=== PATIENT | female | born 2000 | race Caucasian/White ===

== ENCOUNTER 2019-04-22 19:39 | Observation (INO) ==
[2019-04-22] MEDS ORDERED: SODIUM CHLORIDE 0.9% 1000ML 1,000 ML IV SCH (20:00)
[2019-04-22 20:09] LABS: Basophils # (auto) 0.02 K/uL (0-0.2); Basophils % (auto) 0.3 %; Eosinophils # (auto) 0.41 K/uL (0-0.5); Eosinophils % (auto) 5.3 %; Hematocrit (blood only) 38.6 % (37-47); Hemoglobin 12.9 g/dL (12.0-16.0); Immature Granulocytes # (auto) 0.03 K/uL (0.00-0.02); Immature Granulocytes % (auto) 0.4 %; Lymphocytes % (auto) 29.8 %; Mean Corpuscular Hemoglobin 28.7 pg (25-34); Mean Corpuscular Hgb Conc 33.4 g/dL (32-36); Mean Corpuscular Volume 85.8 fL (80-100); Monocytes # (auto) 0.52 K/uL (0.11-0.59); Monocytes % (auto) 6.7 %; Neutrophils # (auto) 4.45 K/uL (1.4-6.5); Neutrophils % (auto) 57.5 %; Platelet Count 335 K/uL (130-400); RDW Coefficient of Variation 13.3 % (11.5-14.5); RDW Standard Deviation 42.1 fL (36.4-46.3); White Blood Count 7.73 K/uL (4.8-10.8)
[2019-04-22 20:19] LABS: BUN Creatinine Ratio 7.4 (10-20); Calcium 9.5 mg/dl (8.5-10.1); Creatinine Clr Calc Pharmacy 87.3 ml/min; Est GFR (African American) 93.9; Potassium 4.1 mmol/L (3.5-5.1)
[2019-04-22 20:24] LABS: Bilirubin,Total 0.2 mg/dl (0.2-1); Globulin 4.2 gm/dl (2.5-4.0); Total Protein 8.2 gm/dl (6.4-8.2)
--- NOTE | 2019-04-22 21:14 | XRay Report ---
XR chest 1V portable CLINICAL HISTORY: 19 years-old Female presenting with seizure. TECHNIQUE: Portable upright AP view of the chest was obtained. COMPARISON: None. FINDINGS: Cardiomediastinal silhouette normal. No focal opacity. No large effusion or pneumothorax. Osseous str uctures normal. Upper abdomen normal. IMPRESSION: 1. No acute cardiopulmonary disease. ACT 112: Negative or not required by law. Electronically signed by: Henry Holder M.D. 04/22/2019 9:12 PM
[2019-04-22] MEDS ORDERED: LORazepam 1 MG/2 ML VIAL IV STA (21:48)
--- NOTE | 2019-04-22 22:10 | History & Physical Report ---
Date of Service April 22, 2019 Assessment & Plan (1) Breakthrough seizure: OBS tele seizure precautions PRN IV Ativan Consult neurology Will defer order for EEG to neurology as seizure was witnessed by ED staff. D5 1/2 NSS at 80ml/hr. (2) Seizure disorder: Continue Keppra at 2000mg BID DVT prophylaxis = SCDs and NATASHA villeda. History of Present Illness 19 year old female presented to the ED with tonic clonic seizure just prior to arrival. Patient's roommate reported that seizure lasted 26 seconds. Body shaking was noted and patient was confused upon awakening. No loss of bowel or bladder control. She is taking Keppra 2gm BID. She has not missed a dose. No chest pain, SOB, cough, headache, N/V/D, or F/C. She was planned to be discharged from the ED and had tonic clonic seizure prior to being discharged. Therefore, she is admitted to PCU. As I saw the patient she was post-ictal and had been given lorazepam. Her parents were present and I update them and answered questions. . Primary Care Provider: [facility] Allergies Allergy/AdvReac Type Severity Reaction Status Date / Time No Known Allergies Allergy Verified 04/22/19 21:12 Home Medications Home Medications Medication Instructions Recorded Confirmed Type levetiracetam 2,000 mg PO BID 04/22/19 04/22/19 History Past Med/Surg History Medical History Seizure disorder Surgical History No pertinent past surgical history Family History Other Family history non-contributory Social History Preferred Language: Peruvian Communication Ability: Effective [employer] Sales[employer] Required: No Beliefs That Will Affect Care: None Current Living Situation: Other Current Living Situation Comment: roomates/parents when out of school Feels Safe at Home: Yes Smoking Status: Never smoker Hx Alcohol Use: No Hx Substance Use: No Review of Systems Review of Systems: All systems reviewed & are unremarkable except as noted in HPI & below Physical Exam Physical Exam: General- adult female, currently sleeping. Head- atraumatic Eyes- PERRL, EOMI, anicteric ENT- oropharynx clear Neck- supple, no JVD, no adenopathy, no thyromegaly. Lungs- CTA b/l no R/R/W. Heart- regular rhythm; no murmur, no gallop, no rub appreciated Abdomen- normal bowel sounds, soft, nontender, no masses or hepatosplenomegaly Extremities- no pretibial edema, no calf tenderness; peripheral pulses intact Neuro- Sleeping, she is post-ictal and had been given lorazepam. Skin- warm & dry Results & Data Vital Signs (Past 12 Hours) Vital Signs Temp Pulse Resp BP Pulse Ox 04/22/19 21:46 106 H 19 129/79 95 04/22/19 21:30 82 15 122/75 97 04/22/19 21:00 81 18 109/64 04/22/19 20:30 76 22 105/61 04/22/19 19:46 36.9 C 99 H 14 115/65 97 Laboratory Results Laboratory Results WBC 7.73 K/uL (4.8-10.8) 04/22/19 19:30 RBC 4.50 M/uL (4.2-5.4) 04/22/19 19:30 Hgb 12.9 g/dL (12.0-16.0) 04/22/19 19:30 Hct 38.6 % (37-47) 04/22/19 19:30 MCV 85.8 fL (80-100) 04/22/19 19:30 MCH 28.7 pg (25-34) 04/22/19 19:30 MCHC 33.4 g/dL (32-36) 04/22/19 19:30 RDW Std Deviation 42.1 fL (36.4-46.3) 04/22/19 19:30 RDW Coeff of Kermit 13.3 % (11.5-14.5) 04/22/19 19:30 Plt Count 335 K/uL (130-400) 04/22/19 19:30 MPV 10.0 fL (7.4-10.4) 04/22/19 19:30 Immature Gran % (Auto) 0.4 % 04/22/19 19: Neut % (Auto) 57.5 % 04/22/19 19:30 Lymph % (Auto) 29.8 % 02/11/20 19:30 [place] % (Auto) 6.7 % 04/22/19 19:30 Eos % (Auto) 5.3 % 04/22/19 19:30 Baso % (Auto) 0.3 % 04/22/19 19:30 Immature Gran # (Auto) 0.03 K/uL (0.00-0.02) H 04/22/19 19:30 Neut # (Auto) 4.45 K/uL (1.4-6.5) 04/22/19 19:30 Lymph # (Auto) 2.30 K/uL (1.2-3.4) 04/22/19 19:30 [place] # (Auto) 0.52 K/uL (0.11-0.59) 04/22/19 19: Eos # (Auto) 0.41 K/uL (0-0.5) 04/22/19 19:30 Baso # (Auto) 0.02 K/uL (0-0.2) 04/22/19 19:30 Sodium 140 mmol/L (136-145) 04/22/19 19:30 Potassium 4.1 mmol/L (3.5-5.1) 04/22/19 19:30 Chloride 108 mmol/L (98-107) H 04/22/19 19:30 Carbon Dioxide 20 mmol/L (21-32) L 04/22/19 19:30 Anion Gap 12.0 (3-11) H 04/22/19 19:30 BUN 7 mg/dl (7-18) 04/22/19: Creatinine 1.00 mg/dl (0.6-1.2) 04/22/19 19:30 Est Cr Clr Drug Dosing 87.3 ml/min 04/22/19 19:30 Est GFR ( Amer) 93.9 04/22/19 19:30 Est GFR (Non-Af Amer) 81.0 04/22/19 19: BUN/Creatinine Ratio 7.4 (10-20) L 04/22/19 19:30 Glucose 105 mg/dl (70-99) H 04/22/19 19:30 Calcium 9.5 mg/dl (8.5-10.1) 04/22/19 19: Total Bilirubin 0.2 mg/dl (0.2-1) 02/11/20 19:30 AST 10 U/L (15-37) L 04/22/19 19:30 ALT 16 U/L (12-78) 04/22/19 19:30 Alkaline Phosphatase 64 U/L (45-117) 04/22/19 19:30 Total Protein 8.2 gm/dl (6.4-8.2) 04/22/19 19:30 Albumin 4.0 gm/dl (3.4-5.0) 04/22/19 19:30 Globulin 4.2 gm/dl (2.5-4.0) H 04/22/19 19:30 Albumin/Globulin Ratio 1.0 (0.9-2) 04/22/19 19:30 POC Ur Test NEG (NEG) 04/22/19 21:15 Diagnostic Findings [place], [place] [phone] XRay Report Patient: NITZA TRACEY Date: 04/22/19 MR#: [id number] [facility] Acct ID:[id number]: Date: 2000[facility] Zip: [place] [address] Age: 19Location: ED Sex: F Room/Bed: Att Phy:Diagnosis: SEIZURE [facility]: [facility] Fam Phy:Interpreting Phy: Henry Holder MD Admit Phy: Ordering Phy: Moshe Rick, cc: ~ XR chest 1V portable CLINICAL HISTORY: 19 years-old Female presenting with seizure. TECHNIQUE: Portable upright AP view of the chest was obtained. COMPARISON: None. FINDINGS: Cardiomediastinal silhouette normal. No focal opacity. No large effusion or pneumothorax. Osseous structures normal. Upper abdomen normal. IMPRESSION: 1. No acute cardiopulmonary disease. ACT 112: Negative or not required by law. Electronically signed by: Henry Holder M.D. 04/22/2019 9:12 PM Dictated: 04/22/192111 Transcribed: 04/22/192111 Code Status & VTE Plan VTE Prophylaxis Plan VTE Prophylaxis will be ordered: Yes PG Care Time/CCT Total # of Minutes Spent Total Time Spent: 55 Total Time Spent with Patient: Total time spent is greater than 50% in coordination of care (as documented) at patient's floor/unit and/or counseling patient: Coding Level of Care Code 73348 OBS Care - Level 3 Diagnoses Breakthrough seizure G40.919 Seizure disorder G40.909
--- NOTE | 2019-04-22 23:29 | Emergency Department Note ---
Entered by Blanche Merida acting as a scribe for Moshe Rick DO History of Present Illness General Chief complaint: Seizure Stated complaint: SEIZURE Source: patient, EMS and friends (roommate) History of Present Illness Onset (ago): minute(s) (prior to arrival) Location: head (general) Pain Consistency: + other (episode) Quality: + other (seizure) Associated symptoms: + denies other symptoms (head injury) and + other (fall); no chest pain, no nausea/vomiting and no shortness of breath The patient is a 19 year old female who presents to the Emergency Room with complaints of an episode of a tonic clonic seizure that occurred prior to arrival. The patient's roommate states the seizure last for 26 seconds. She reports whole body shaking and notes the patient was confused when she woke up. The patient's roommate states the patient was standing and fell onto her left shoulder, but did not hit her head. She denies loss of bowel or bladder. EMS reports the patient has a history of epilepsy. They note the patient had a blood sugar of 102. The patient reports a history of seizures for the past 7 years. She notes approximately one seizure a year, with the most recent over a year ago. The patient reports taking Keppra 2g twice a day. She denies missing any doses. She denies shortness of breath, chest pain, nausea, and vomiting. She notes her last normal menstrual period recently just ended. Home Medications Home Medications Medication Instructions Recorded Confirmed Type levetiracetam 2,000 mg PO BID 04/22/19 04/22/19 History Allergies Allergy/AdvReac Type Severity Reaction Status Date / Time No Known Allergies Allergy Verified 04/22/19 21:12 Past Med/Surg History Medical History Seizure disorder Surgical History No pertinent past surgical history Family History Other Family history non-contributory Social History Preferred Language: Cameroonian Feels Safe at Home: Yes Smoking Status: Never smoker Review of Systems See HPI for pertinent positives & negatives. and A total of 10 systems reviewed and were otherwise negative Physical Exam Vital Signs Vital Signs - 24 hr 04/22/19 19:46 04/22/19 20:30 04/22/19 21:00 Temperature 36.9 C Temperature Source Oral Pulse Rate 99 H 76 81 Pulse Rate from SpO2 Sensor Respiratory Rate 14 22 18 Respiratory Effort / Characteristics Non-Labored Spontaneous Respiratory Depth Normal Respiratory Pattern Regular Blood Pressure 115/65 105/61 109/64 Blood Pressure Mean 81 68 71 Pulse Oximetry 97 Oxygen Delivery Method Room Air Room Air Sepsis Recent Fever Within 48 Hours No Sepsis New/Unexplained Change in Mental Status No Sepsis Action Taken by Nursing No Action Required 04/22/19 21:30 04/22/19 21:46 04/22/19 22:00 Temperature Temperature Source Pulse Rate 82 106 H 107 H Pulse Rate from SpO2 Sensor 83 107 H Respiratory Rate 15 19 20 Respiratory Effort / Characteristics Respiratory Depth Respiratory Pattern Blood Pressure 122/75 129/79 118/55 L Blood Pressure Mean 82 87 77 Pulse Oximetry 97 95 95 Oxygen Delivery Method Room Air Sepsis Recent Fever Within 48 Hours Sepsis New/Unexplained Change in Mental Status Sepsis Action Taken by Nursing GENERAL: sitting up in bed, disheveled, tearful, no acute distress HEAD: nc/at EYE EXAM: normal conjunctiva, PERRL and EOM's grossly intact OROPHARYNX: bite farias on bilateral tongue; no exudate, no erythema, lips, and buccal mucosa normal and mucous membranes are moist NECK: supple, no nuchal rigidity, no adenopathy, non-tender LUNGS: Clear to auscultation. Normal chest wall mechanics HEART: no murmurs, S1 normal and S2 normal ABDOMEN: abdomen soft, non-tender, normo-active bowel sounds, no masses, no rebound or guarding. BACK: Back is symmetrical on inspection and there is no deformity, no midline tenderness, no CVA tenderness. SKIN: no rashes and no bruising UPPER EXTREMITIES: upper extremities are grossly normal. LOWER EXTREMITIES: No pitting edema. NEURO EXAM: Normal sensorium, cranial nerves II-XII intact, normal speech, no weakness of arms, no weakness of legs. No drift. Finger to nose intact. Gross sensation intact. Heal to nickerson intact. Rapid alternating movements of upper extremities intact. Course Course ED COURSE: Vital signs were reviewed and showed tachycardic. The patients medical record was reviewed The above diagnostic studies were performed and reviewed. ED treatments and interventions as stated above. 1950: The patient was evaluated in room A12B. A complete history and physical examination was performed. 2029: Upon reevaluation, the patient has a mild headache. She is able to walk to the bathroom. 2121: I spoke with Dr. Luis Lama neurology who recommends no change to the patient's medication and follow-up in the seizure clinic. 2143: Upon reevaluation, the patient had another seizure. 2149: Upon reevaluation, the patient is groggy, and is able to open her eyes, say her name and move all extremities. I discussed my findings with the patient and she understands and agrees with the treatment plan. I reviewed the patient's case with Dr. Kim [facility] Hospitalist will evaluate the patient for further management. Based on the patients age, coexisting illnesses, exam and lab findings the d ecision to treat as an inpatient was made. The patient remained stable while under my care. The patient will be evaluated for further management. Administered Medications Discontinued Medications Sodium Chloride (Nss 1000ml) 1,000 mls @ 999 mls/hr IV .Q1H1M FOSTER Stop: 04/22/19 21:00 Last Infusion: 04/22/19 21:17 Dose: 0 mls/hr Documented by: [id number] Admin: 04/22/19 20:16 Dose: 999 mls/hr Documented by: [id number] Lorazepam (Ativan) 1 mg in 2 mls @ 2 mls/min IV NOW STA Stop: 04/22/19 21:49 Last Admin: 04/22/19 21:54 Dose: 2 mls/min Documented by: [id number] Medical Decision Making Differential Diagnosis Differential diagnosis includes etiologies such as infection, hypoglycemia, electrolyte abnormalities, cardiac sources, intracerebral event, trauma, toxicologic, neurologic, as well as others were entertained. Medical Records Attestation: I reviewed the patient's medical records. Home Medications Current Medication List: was personally reviewed by me Laboratory Data Attestation: I reviewed the patient's lab results. Result diagrams: 04/22/19 19:30 04/22/19 19:30 Lab Results 04/22/19 04/22/19 04/22/19 Range/Units 19:30 19:30 21:15 WBC 7.73 (4.8-10.8) K/uL RBC 4.50 (4.2-5.4) M/uL Hgb 12.9 (12.0-16.0) g/dL Hct 38.6 (37-47) % MCV 85.8 (80-100) fL MCH 28.7 (25-34) pg MCHC 33.4 (32-36) g/dL RDW Std Deviation 42.1 (36.4-46.3) fL RDW Coeff of Kermit 13.3 (11.5-14.5) % Plt Count 335 (130-400) K/uL MPV 10.0 (7.4-10.4) fL Immature Gran % (Auto) 0.4 % Neut % (Auto) 57.5 % Lymph % (Auto) 29.8 % [place] % (Auto) 6.7 % Eos % (Auto) 5.3 % Baso % (Auto) 0.3 % Immature Gran # (Auto) 0.03 H (0.00-0.02) K/uL Neut # (Auto) 4.45 (1.4-6.5) K/uL Lymph # (Auto) 2.30 (1.2-3.4) K/uL Mineral # (Auto) 0.52 (0.11-0.59) K/uL Eos # (Auto) 0.41 (0-0.5) K/uL Baso # (Auto) 0.02 (0-0.2) K/uL Sodium 140 (136-145) mmol/L Potassium 4.1 (3.5-5.1) mmol/L Chloride 108 H (98-107) mmol/L Carbon Dioxide 20 L (21-32) mmol/L Anion Gap 12.0 H (3-11) BUN 7 (7-18) mg/dl Creatinine 1.00 (0.6-1.2) mg/dl Est Cr Clr Drug Dosing 87.3 ml/min Est GFR ( Amer) 93.9 Est GFR (Non-Af Amer) 81.0 BUN/Creatinine Ratio 7.4 L (10-20) Glucose 105 H (70-99) mg/dl Calcium 9.5 (8.5-10.1) mg/dl Total Bilirubin 0.2 (0.2-1) mg/dl AST 10 L (15-37) U/L ALT 16 (12-78) U/L Alkaline Phosphatase 64 (45-117) U/L Total Protein 8.2 (6.4-8.2) gm/dl Albumin 4.0 (3.4-5.0) gm/dl Globulin 4.2 H (2.5-4.0) gm/dl Albumin/Globulin Ratio 1.0 (0.9-2) POC Ur Test NEG (NEG) Imaging Data Radiologist's Impression: Radiology results as stated below per my review and the radiologist's interpretation: XR chest 1V portable CLINICAL HISTORY: 19 years-old Female presenting with seizure. TECHNIQUE: Portable upright AP view of the chest was obtained. COMPARISON: None. FINDINGS: Cardiomediastinal silhouette normal. No focal opacity. No large effusion or pneumothorax. Osseous structures normal. Upper abdomen normal. IMPRESSION: 1. No acute cardiopulmonary disease. ACT 112: Negative or not required by law. Electronically signed by: Henry Holder M.D. 04/22/2019 9:12 PM ECG Data Attestation: I personally reviewed and interpreted this ECG as follows: Indication: + other (seizure) Rate (beats per minute): 82 Rhythm: + sinus rhythm ECG Intervals/blocks: + Normal QT-c ECG [place]: + Normal ECG Findings: no PVCs Blood Pressure Blood Pressure Findings: Low blood pressure Blood Pressure Disposition: further management by hospitalist CHARISSE Narrative Patient is a 19-year-old female who presents the ER with a past medical history of a seizure disorder since she was a teenager. She gets about 1 a year. She is on 2 g of Keppra twice a day. She initially declines all other symptoms and notes that she had a 35-second seizure which was witnessed by her roommate. She is currently back to normal. Neurologic intact. She does have a previous CTs and MRIs per patient. IV was established blood work was obtained and shows no significant leukocytosis or anemia. BMP with a slightly low CO2. Do favor consistent with a seizure. Bilirubin LFTs was unremarkable. negative. Ordered a Keppra level. Chest x-ray was unremarkable as well as EKG. Just prior to discharge patient had a second seizure. I had already talked with Daina who was going to follow her up as an outpatient. Mom was present at bedside. She was given a dose of Ativan. Her mentation has gradually improved. Mom notes that she was recently diagnosed with the influenza I do be favor that this is the likely inciting factor which is lowered her seizure threshold. Discussed with our neurologist and they recommend no new changing of medications. Discussed with the hospitalist for observation. Impression & Plan Epileptic seizure, Breakthrough seizure, High serum chloride Discharge Plan Visit Data Chief Complaint: Seizure Stated Complaint: SEIZURE ED Provider: Moshe Rick Discharge Problem: Epileptic seizure, Breakthrough seizure, High serum chloride Patient Disposition: Being Evaluated by Hospitalist Discharge Instructions Interventions: ED Discharge Assessment Last Done: 04/22/19 22:59 Discharge Problem: Epileptic seizure Qualifiers: Epilepsy type: unspecified Intractability: not intractable Status epilepticus: without status epilepticus Qualified Code(s): G40.909 - Epilepsy, unspecified, not intractable, without status epilepticus The scribe's documentation has been prepared under my direction and personally reviewed by me in its entirety. I confirm that the note above accurately refl ects all work, treatment, procedures, and medical decision making performed by me.
[2019-04-22] MEDS ORDERED: LORazepam 1 MG/2 ML VIAL IV PRN (23:37)
[2019-04-22] MEDS ORDERED: ACETAMINOPHEN 325 MG TAB PO PRN (23:37)
[2019-04-22] MEDS ORDERED: ONDANSETRON INJ 2 MG/ML 2 ML VIAL IV PRN (23:37)
[2019-04-22] MEDS ORDERED: ACETAMINOPHEN 325 MG TAB ONE (23:38)
[2019-04-23] MEDS: D5W AND 1/2NSS 1,000 ML IV SCH ×2 (00:26→13:38)
[2019-04-23 04:39] LABS: Hematocrit (blood only) 34.1 % (37-47); Hemoglobin 11.1 g/dL (12.0-16.0); Mean Corpuscular Hemoglobin 28.4 pg (25-34); Mean Corpuscular Hgb Conc 32.6 g/dL (32-36); Mean Corpuscular Volume 87.2 fL (80-100); Mean Platelet Volume 10.2 fL (7.4-10.4); Platelet Count 243 K/uL (130-400); RDW Coefficient of Variation 13.5 % (11.5-14.5); Red Blood Count 3.91 M/uL (4.2-5.4); White Blood Count 6.87 K/uL (4.8-10.8)
[2019-04-23 04:59] LABS: BUN Creatinine Ratio 9.8 (10-20); Calcium 8.4 mg/dl (8.5-10.1); Creatinine Clr Calc Pharmacy 117.9 ml/min; Est GFR (African American) 135.2; Est GFR (Non-African American) 116.6; Potassium 3.8 mmol/L (3.5-5.1)
[2019-04-23] MEDS ORDERED: levETIRAcetam 500 MG TAB PO SCH (09:00)
--- NOTE | 2019-04-23 10:02 | Neurology Consultation ---
Date of Consultation April 23, 2019 Assessment & Plan (1) Seizure disorder: (2) Post-ictal state: Patient has a history of epilepsy fairly well controlled on levetiracetam, currently at a fairly high dose of 2000 mg twice daily. A Keppra level is pending. She had 2 brief breakthrough seizures April 22 and currently is somewhat sleepy/lethargic from a postictal state and the use of Ativan yesterday. Currently she has no encephalopathy, meningeal signs, or focal neurologic fin dings. The etiology of the seizures is likely breakthrough because of multiple factors lowering seizure threshold such as being ill, fatigue, stressed from school issues, and even pseudoephedrine (which can lower seizure threshold). Recommendations: 1. Continue levetiracetam at 2000 mg twice daily as before. 2. In future, if she has any side effects to this medication or we are not convinced that it is adequately controlling her events, we could consider alternative such as lamotrigine. I will leave this to her regular neurologist from [facility]. 3. Levetiracetam level is pending. 4. I see no need for MRI, EEG, or other neurologic testing at this time, as it will not change our treatment plan. 5. Otherwise, I have no other recommendations to make and she will follow up with her [facility] neurologist. Overall, I spent a total of 100 minutes with this case including review of records, direct evaluation the patient at bedside, and discussion of the case with the patient at bedside, father at bedside, RN, and Dr. Case, including differential diagnosis and treatment options. History of Present Illness Reason for Consultation: Patient is a 19-year-old, who I was asked to see at the request of Dr. Fernandes, for neurologic consultation regarding seizures Requesting Physician: Dr. Fernandes Attending Physician: Deena Fernandes MD History of Present Illness Patient's father is present at bedside who adds to the history considerably. Patient herself was a little lethargic/sleepy but able to answer questions and cooperate. Apparently, she has had seizures since age 12. She has been followed by [facility] neurologists since. She was initiated on levetiracetam and has been on some dose of this since she was 12 although in the last year it was increased to her current dose of 2000 mg twice daily. Apparently her frequency of seizures on this medication is anywhere from every 6-18 months. The patient herself cannot recall any warning prior to her seizures, but the patient was evaluated in the EMU of [facility] in July of 2018 (and accompanied by her mother). In the unit she had seizure with a warning feeling nauseated and the need to alert people that something might be happening. She herself forgets this. According to her father this warning will last 15-20 seconds. The patient will go into a generalized tonic-clonic movement lasting typically 2-3 minutes. She will then be postictal with fatigue, nausea and sleepiness. She will recover by about 12 hours. Patient's most recent seizure prior to this hospitalization was in March of 2018 although she had an episode in the EMU at [place] in July of 2018. About 3 weeks ago she had upper respiratory tract infection type symptoms. One week ago she spiked a fever went to [facility] and a nasal swab was apparently positive for the flu. She was given 1 dose of Xofluza. Over the last 4 days she has taken 5 doses of pseudoephedrine and taken other tnhv-utk-rwnkyrz medications such as ibuprofen and Tylenol. She has been very tired and worn out from this illness as well as stressed from school and social issues. Around 1900 she was getting ready to go to a concert at [facility], and had a 26 second seizure, according to the roommate. She was very postictal afterwards but does remember some of the ambulance ride and being in the emergency room. She arrived to the ER at 1946 with a temperature 36 point 9, pulse 99, respiratory rate 14, blood pressure 115/65, and O2 saturation 97%. She was described as somewhat sleepy but she improved over time. She had no focal neurologic findings. CBC and Chem profile were unremarkable. Magnesium was unremarkable. test was negative. Chest x-ray was unremarkable. She was recovered nicely at and about to be discharged when she had a 2nd 30 second generalized tonic-clonic event witnessed by emergency room personnel. She was given 1 mg of Ativan IV. Patient had no seizures overnight and no dysrhythmia on cardiac monitoring. This morning she feels tired and sleepy but back to normal physically. She denies headache, pain, soreness in the limbs, or dizziness. Allergies Allergy/AdvReac Type Severity Reaction Status Date / Time No Known Allergies Allergy Verified 04/22/19 21:12 Home Medications Home Medications Medication Instructions Recorded Confirmed Type levetiracetam 2,000 mg PO BID 04/22/19 04/22/19 History Patient History Medical History (Updated 04/23/19 @ 09:56 by Brandon Del Rio III, MD) Seizure disorder Surgical History H/O wisdom tooth extraction No pertinent past surgical history Family History Mother No problems noted. Father No problems noted. 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 Feels Safe at Home: Yes Smoking Status: Never smoker Hx Alcohol Use: No Hx Substance Use: No Review of Systems Constitutional: + fatigue; no fever and no weakness Eyes: no diplopia, no eye pain and no worsening vision Ear, Nose, Mouth, Throat: no ear pain, no tinnitus, no hearing loss, no dizziness, no snoring, no hoarseness and no dysphagia Respiratory: no cough and no dyspnea Cardiovascular: no chest pain, no palpitations and no lightheadedness Gastrointestinal: no abdominal pain, no nausea and no vomiting Genitourinary: no dysuria, no urinary frequency and no urinary incontinence Musculoskeletal: no back pain, no neck pain, no radicular pain, no joint pain and no myalgia Integumentary: no rash and no lesions Neurologic: no gait abnormality, no localized weakness, no generalized weakness, no tingling, no numbness, no tremor(s), no abnormal movements, no headache(s), no abnormal speech, no confusion and no memory loss Psychiatric: no depression, no irritability, no anxiety, no difficulty concentrating, no confusion and no hallucinations Endocrine: + fatigue; no flushing Hematologic / Lymphatic: no easy bleeding and no easy bruising Allergy / Immunological: no urticaria and no problem reported Physical Exam Physical Exam: The patient is right-handed. The patient is awake, alert, and attentive, although somewhat sleepy. She is easily redirected and arousable. Speech is normal without any aphasia or dysarthria. She can name objects, repeat phrases, and has normal spontaneous speech. Mentation and thought processes are intact, with orientation to person, place and time, and normal fund of knowledge. Attention and concentration are normal. Mood and affect are normal and appropriate. General appearance and grooming are normal. Short and long-term memory are intact. The discs are sharp with positive venous pulsations bilaterally. There are no exudates, hemorrhages, or blood vessel changes seen. Pupils are 4 mm bilaterally and reactive to light. Extraocular eye muscles are intact without nystagmus. Visual acuity and visual miles seem normal grossly to confrontation. There are no deficits to sensation in the face in all 3 distributions of the fifth cranial nerve bilaterally. Corneal reflexes are positive bilaterally. Facial strength and symmetry was normal bilaterally. Hearing seems normal to whisper and finger rub bilaterally. Palate moves well without asymmetry. There is normal sternocleidomastoid and trapezius (shoulder shrug) strength bilaterally. Tongue is midline with good strength bilaterally. Neck has a full range of motion without discomfort. There are no cervical bruits bilaterally. There are no cranial or ocular bruits. Heart is without murmur. There is a regular rhythm and rate. Cervical, thoracic, and lumbar spine are nontender to palpation. Gait is narrow based, with good arm swing, turns, and stance. Balance is normal eyes open or closed. With outstretched arms there is no drift. There are no resting, postural, or action tremors. There is no ataxia with finger to nose testing. There is good facility in the hands. No other abnormal involuntary movements are noted. Motor strength is 5/5 diffusely in the arms bilaterally including deltoids, biceps, triceps, brachioradialis, wrist flexors and extensors, screwhead polisher, and intrinsic hand muscles. Motor strength is 5/5 diffusely in the legs bilaterally including hip flexors, quadriceps, hamstrings, gastrocnemius, tibialis anterior, tibialis posterior, and Peroneii muscles. Toe extensors are normal and there is good bulk in the extensor digitorum brevis muscles bilaterally. The limbs have good tone without rigidity or spasticity. There is no atrophy noted in the muscles. Muscle bulk is normal, there is no tenderness to palpation, no myotonia to percussion, and no fasciculations seen. Sensory examination is intact to touch and pin throughout all 4 limbs diffusely. Reflexes are 1/4 in the biceps, triceps, brachioradialis, quadriceps, and Achilles tendons bilaterally. There is no clonus bilaterally. Toes are downgoing with plantar stimulation bilaterally. Peripheral pulses are present and of normal quality distally in all 4 limbs. There is no peripheral edema noted in the limbs. Results & Data Vital Signs (Past 12 Hours) Vital Signs Temp Pulse Pulse Resp BP BP Pulse Ox 04/23/19 07:09 36.3 C L 66 16 92/55 L 98 04/23/19 04:00 36.7 C 76 16 93/48 L 96 04/22/19 23:46 36.7 C 98 H 18 104/69 99 04/22/19 22:30 101 H 24 99/50 L 94 04/22/19 22:00 107 H 20 118/55 L 95 04/22/19 21:46 106 H 19 129/79 95 PG Care Time/CCT Total # of Minutes Spent Total Time Spent with Patient: Total time spent is greater than 50% in coordination of care (as documented) at patient's floor/unit and/or counseling patient: Coding Level of Care Code 39903 Office/OBS Consult Lvl 5 Diagnoses Seizure disorder G40.909 Post-ictal state R56.9 Time Spent (min) 100 Comment Add [id number] to the [id number]
--- NOTE | 2019-04-23 10:17 | Discharge Summary ---
Date of Service April 23, 2019 Admission HPI Per Admitting Provider 19 year old female presented to the ED with tonic clonic seizure just prior to arrival. Patient's roommate reported that seizure lasted 26 seconds. Body shaking was noted and patient was confused upon awakening. No loss of bowel or bladder control. She is taking Keppra 2gm BID. She has not missed a dose. No chest pain, SOB, cough, headache, N/V/D, or F/C. She was planned to be discharged from the ED and had tonic clonic seizure prior to being discharged. Therefore, she is admitted to PCU. As I saw the patient she was post-ictal and had been given lorazepam. Her parents were present and I update them and answered questions. . Principal Diagnosis Breakthrough seizure Discharge Exam Constitutional WD/WN, vitals as above Eyes PERRL, conjunctivae normal, anicteric sclerae ENMT external ear and nose normal, oropharynx normal Respiratory normal respiratory effort, lungs clear to auscultation Cardiovascular Rate/Rhythm: regular rate and regular rhythm Heart Sounds: normal S1 and normal S2; no gallop, no murmur and no cardiac rub Gastrointestinal (Abdomen) normal bowel sounds, soft, nontender, no hepatosplenomegaly Musculoskeletal no cyanosis or clubbing, extremities motor strength 5/5 Neurologic CN's II-XI intact bilaterally and awake Motor/Sensory: normal movement, no fasciculations and no sensory deficit Psychiatric A+Ox3, euthymic affect Orientation: cooperative Discharge Data Allergies Allergy/AdvReac Type Severity Reaction Status Date / Time No Known Allergies Allergy Verified 04/22/19 21:12 Consultations 04/22/19 21:48 ED Decision to Admit Stat 04/22/19 23:37 Consult Neurology Routine Hospital Course (1) Seizure disorder: Ms. Claudio is a 19y/o F with PMH significant for seizure disorder; who presented to the emergency following a breakthrough seizure. Seizure: - elected not to due MRI or EEG, in the setting of recent EMU (2019) tracing demonstrating interictal spike-polyspike and wave activity and one seizure with pre-ictal burst of typical interictal epileptiform activity per records visualized from [facility] - seen by local neurologist - Continue levetiracetam at 2000 mg twice a day - advised to engage in further discussions about recent seizure events from yesterday, with outpatient Neurologist as she may benefit from additional anti- epileptic medication - advised patient to avoid use of pseudoephedrine in the future for concern of lowering of seizure threshold Total Time Total Time Spent Total Time Spent (In Minutes): 30 Discharge Plan Discharge Items Patient Disposition: Home - Self-Care Reason For Visit: BREAKTHROUGH SEIZURE Discharge Diagnosis: Seizure disorder Condition on Discharge: Good Activity: Per Instructions section Non-emergency contact: Primary Care Provider and Neurologist Call non-emergency contact if: you have any medication questions and your symptoms worsen Follow-up/Referrals: [facility] [Primary Care Provider] - Diet: Regular Addtl Attending Provider Instructions: You were seen and evaluated following having two seizures last night, that subsequently required you to receive additional medication to help break the seizure cycle. With your previously known seizure history, and continued use of Keppra for control of your seizures, we call these episodes breakthrough seizures; these can happen in the setting of recent viral illness, and use of pseudoephedrine, and even stress from school. With the limited number of seizures you have had since being started on Keppra, in discussions with our neurologist it was decided that at this time you should continue to take the medication as you have been previously prescribed, and we encourage you to have discussions with your Neurologist in regards to potential need for starting an alternative anti-seizure medication. It is important that you have this follow- up with them shortly as you have now had these two additional episodes. As you have previously had MRIs and EEGs recently, we have held off on these steps as since you have resolved in your symptoms, they will not change the goals of management of your seizure at this point in time. Pending Studies at Discharge: No Stand-Alone Forms: My [facility] Medications and DC Order Prescriptions: Continued levetiracetam 1,000 mg tablet 2,000 mg PO BID RF: 0 Discharge Orders: Discharge Order (Routine); Ordered 04/23/19 Ordered By: Chaitanya Aparicio/Other Patient Handouts: Epilepsy How Seizures Affect Body, Epilepsy Meds, Anatomy Brain, Epilepsy Dc, ED Seizure Recurrent Adult Admission Data Admit Date/Time: 04/22/19 22:08 Attending Provider: Deena Fernandes Admit Provider: Fredrick Kim Primary Care Provider: [facility] Other Providers: Fredrick Kim ; Brandon Del Rio III Other Interventions: Discharge Summary Assessment (RN) Last Done: 04/23/19 15:22 DC Date/Time DO NOT enter until pt leaves facility: 04/23/19 15:44 Supervising Physician Co-Signing Physician Notes Resident Physician Supervision Note: I independently interviewed and examined the patient and verified the otoole history and physical, reviewed labs and image studies, discussed the case with the resident Dr. Case and agree with the findings and care plan. Resident Activity Tracking Resident Involvement: Resident Care Provided Care Provided: Adult Hospital Medicine
--- NOTE | 2019-04-23 11:44 | Electrocardiogram Report ---
Test Reason : Blood Pressure : / mmHG Vent. Rate : 082 BPM Atrial Rate : 082 BPM P-R Int : 156 ms QRS Dur : 078 ms QT Int : 364 ms P-R-T Axes : 061 062 040 degrees QTc Int : 425 ms Normal sinus rhythm Normal ECG When compared with ECG of 27-NOV-2017 12:16, No significant change was found Confirmed by Nick Starks ([id number]) on 04/23/2019 11:43:57 AM Referred By: REFERRED SELF Confirmed By:Nick Starks
== END 2019-04-23 15:44 | disposition home or self-care (01) ==
LOC: ED 19:39 → 1E 19:39 → SUATTDRO 22:08 → 1E 22:59 → 2E 04-23 05:35
DX: G40.919 Epilepsy, unspecified, intractable, without status epilepticus